=== PATIENT | male | born 1970 | race African-American/Black ===

== ENCOUNTER 2019-08-08 05:05 | Emergency (ER) | payer BC ==
--- NOTE | 2019-08-08 06:13 | EDM.PDOC ---
ED HPI GENERAL MEDICAL PROBLEM - General Chief Complaint: Respiratory Problem Stated Complaint: LEFT SIDE PAIN LEFT CHEST PAIN HOT AND COLD Time Seen by Provider: 08/08/19 05:48 Source of Information: Reports: Patient History Limitations: Reports: No Limitations - History of Present Illness INITIAL COMMENTS - FREE TEXT/NARRATIVE: Mr. Gallegos is a very pleasant 49-year-old male with no chronic medical issues who states that he has had left-sided pain - he indicates the far left side of his abdomen - coming and going since June. He states that the pain feels like a muscle spasm, with intense pain for 1 to 2 minutes, then briefly resolving, only to come back a short while later. It occasionally radiates up into his chest. It tends to be made worse with deep breaths, belching, or walking. No recent fever, although he has had chills. No recent nausea, vomiting, constipation, diarrhea, or urinary symptoms, although he states that his urine has appeared to be darker since 07/23/2019. The patient states that he first saw his PCP about this in June. He states that blood work and a chest x-ray were performed, and were negative. He was prescribed an opioid pain reliever, an antibiotic, and a steroid. He then saw his PCP a second time on 07/23/2019, where blood work and a chest x-ray were again performed, and were again negative. A CT scan (of what, he is not sure) was ordered for this coming 08/10/2019. The patient states that his pain increased last week, therefore he called his PCP this past . Since he had not heard back, he came to the ED today. The patient acknowledges that his pain is largely unchanged since June. The patient's PCP is Dr. Aaron Doyle. He did not receive an influenza vaccine this season, and declined an offer to receive one here today. Left Mid-Anterior Chest Pain Score (Numeric/FACES): 6 - Related Data Allergies Allergy/AdvReac Type Severity Reaction Status Date / Time No Known Allergies Allergy Verified 08/08/19 05:19 Home Meds: Home Meds . 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 ED EXAM, GI/ABD - Physical Exam Exam: See Below Exam Limited By: No Limitations General Appearance: Alert, WD/WN, No Apparent Distress Eyes: Bilateral: Normal Appearance, EOMI Ears: Normal External Exam, Hearing Grossly Normal Nose: Normal Inspection Throat/Mouth: Normal Inspection, Normal Lips, Normal Voice, No Airway Compromise Head: Atraumatic, Normocephalic Neck: Normal Inspection, Full Range of Motion Respiratory/Chest: No Respiratory Distress, Lungs Clear, Normal Breath Sounds, No Accessory Muscle Use Cardiovascular: Normal Peripheral Pulses, Regular Rate, Rhythm, No Edema, No Gallop, No JVD, No Murmur, No Rub GI/Abdominal Exam: Normal Bowel Sounds, Soft, Non-Tender, No Organomegaly, No Distention, No Abnormal Bruit, No Mass, Other (The patient reports pain to the far left side of his abdomen, however, there is no tenderness to palpation) (Male) Exam: Deferred Rectal (Males) Exam: Deferred Back Exam: Normal Inspection, Full Range of Motion. No: CVA Tenderness (L), CVA Tenderness (R) Extremities: Normal Inspection, Normal Range of Motion, No Pedal Edema, Normal Capillary Refill Neurological: Alert, Oriented, Normal Cognition, No Motor/Sensory Deficits Psychiatric: Normal Affect Skin Exam: Warm, Dry, Intact, Normal Color, No Rash Course - Vital Signs Last Recorded V/S: Last Vital Signs Temp 36.4 C 08/08/19 05:16 Pulse 106 H 08/08/19 05:16 Resp 16 08/08/19 05:16 BP 117/78 08/08/19 05:16 Pulse Ox 92 L 08/08/19 05:16 - Orders/Labs/Meds Orders: Active Orders 24 hr Category Date Time Status Chest 2V [CR] Stat Exams 08/08/19 05:21 Taken INR,PT,PROTHROMBIN TIME [COAG] Stat Lab 08/08/19 08:41 Ordered PTT,PARTIAL THROMBOPLSTIN TIME [COAG] Stat Lab 08/08/19 08:37 Ordered Heparin Sodium Med 08/08/19 08:37 Once 5,000 units IVPUSH .BOLUS ONE Heparin Sodium/D5W [Heparin 25,000 Units in D5W 500 ML] Med 08/08/19 08:45 Ordered 25,000 units in 500 ml IV TITRATE Sodium Chloride 0.9% [Normal Saline] 1,000 ml Med 08/08/19 06:15 Active IV ASDIRECTED Sodium Chloride 0.9% [Normal Saline] 100 ml Med 08/08/19 07:05 Active IV ASDIRECTED Sodium Chloride 0.9% [Saline Flush] Med 08/08/19 07:05 Active 10 ml FLUSH ONETIME PRN Medication Orders Sodium Chloride (Normal Saline) 1,000 mls @ 150 mls/hr IV ASDIRECTED YOVANI Last Admin: 08/08/19 06:12 Dose: 150 mls/hr Sodium Chloride (Normal Saline) 100 mls @ 80 mls/hr IV ASDIRECTED YOVANI Last Admin: 08/08/19 07:10 Dose: 80 mls/hr Heparin Sodium/Dextrose (Heparin 25,000 Units In D5w 500 Ml) 25,000 units in 500 mls @ 26 mls/hr IV TITRATE YOVANI; Protocol Sodium Chloride (Saline Flush) 10 ml FLUSH ONETIME PRN PRN Reason: KEEP VEIN OPEN Last Admin: 08/08/19 07:10 Dose: 10 ml Labs: Laboratory Tests 08/08/19 08/08/19 08/08/19 Range/Units 05:38 05:38 05:38 WBC 5.38 (4.23-9.07) K/mm3 RBC 4.57 L (4.63-6.08) M/mm3 Hgb 14.4 (13.7-17.5) gm/dl Hct 41.4 (40.1-51.0) % MCV 90.6 (79.0-92.2) fl MCH 31.5 (25.7-32.2) pg MCHC 34.8 (32.2-35.5) g/dl RDW Std Deviation 41.9 (35.1-43.9) fL Plt Count 158 L (163-337) K/mm3 MPV 10.3 (9.4-12.3) fl Neut % (Auto) 52.4 (34.0-67.9) % Lymph % (Auto) 26.6 (21.8-53.1) % [place] % (Auto) 15.8 H (5.3-12.2) % Eos % (Auto) 4.6 (0.8-7.0) Baso % (Auto) 0.6 (0.1-1.2) % Neut # (Auto) 2.82 (1.78-5.38) K/mm3 Lymph # (Auto) 1.43 (1.32-3.57) K/mm3 [place] # (Auto) 0.85 H (0.30-0.82) K/mm3 Eos # (Auto) 0.25 (0.04-0.54) K/mm3 Baso # (Auto) 0.03 (0.01-0.08) K/mm3 Manual Slide Review Abnormal smear D-Dimer, Quantitative 2.11 H (0.19-0.50) mg/L Sodium 137 (136-145) mEq/L Potassium 4.1 (3.5-5.1) mEq/L Chloride 101 (98-107) mEq/L Carbon Dioxide 25 (21-32) mEq/L Anion Gap 15.1 H (5-15) BUN 11 (7-18) mg/dL Creatinine 1.3 (0.7-1.3) mg/dL Est Cr Clr Drug Dosing 70.25 mL/min Estimated GFR (MDRD) 59 (>60) mL/min BUN/Creatinine Ratio 8.5 L (14-18) Glucose 98 (74-106) mg/dL Calcium 8.9 (8.5-10.1) mg/dL Total Bilirubin 0.4 (0.2-1.0) mg/dL AST 17 (15-37) U/L ALT 24 (16-63) U/L Alkaline Phosphatase 84 (46-116) U/L NT-Pro-B Natriuret Pep (0-125) pg/mL Total Protein 7.4 (6.4-8.2) g/dl Albumin 3.6 (3.4-5.0) g/dl Globulin 3.8 gm/dL Albumin/Globulin Ratio 1.0 (1-2) Urine Color (Yellow) Urine Appearance (Clear) Urine pH (5.0-8.0) Ur Specific [place] (1.005-1.030) Urine Protein (Negative) Urine Glucose (UA) (Negative) Urine Ketones (Negative) Urine Occult Blood (Negative) Urine Nitrite (Negative) Urine Bilirubin (Negative) Urine Urobilinogen (0.2-1.0) Ur Leukocyte Esterase (Negative) Urine RBC (0-5) /hpf Urine WBC (0-5) /hpf Ur Epithelial Cells (0-5) /hpf Urine Bacteria (FEW) /hpf Urine Mucus (FEW) /hpf 08/08/19 08/08/19 Range/Units 05:38 07:30 WBC (4.23-9.07) K/mm3 RBC (4.63-6.08) M/mm3 Hgb (13.7-17.5) gm/dl Hct (40.1-51.0) % MCV (79.0-92.2) fl MCH (25.7-32.2) pg MCHC (32.2-35.5) g/dl RDW Std Deviation (35.1-43.9) fL Plt Count (163-337) K/mm3 MPV (9.4-12.3) fl Neut % (Auto) (34.0-67.9) % Lymph % (Auto) (21.8-53.1) % [place] % (Auto) (5.3-12.2) % Eos % (Auto) (0.8-7.0) Baso % (Auto) (0.1-1.2) % Neut # (Auto) (1.78-5.38) K/mm3 Lymph # (Auto) (1.32-3.57) K/mm3 [place] # (Auto) (0.30-0.82) K/mm3 Eos # (Auto) (0.04-0.54) K/mm3 Baso # (Auto) (0.01-0.08) K/mm3 Manual Slide Review D-Dimer, Quantitative (0.19-0.50) mg/L Sodium (136-145) mEq/L Potassium (3.5-5.1) mEq/L Chloride (98-107) mEq/L Carbon Dioxide (21-32) mEq/L Anion Gap (5-15) BUN (7-18) mg/dL Creatinine (0.7-1.3) mg/dL Est Cr Clr Drug Dosing mL/min Estimated GFR (MDRD) (>60) mL/min BUN/Creatinine Ratio (14-18) Glucose (74-106) mg/dL Calcium (8.5-10.1) mg/dL Total Bilirubin (0.2-1.0) mg/dL AST (15-37) U/L ALT (16-63) U/L Alkaline Phosphatase (46-116) U/L NT-Pro-B Natriuret Pep 145 H (0-125) pg/mL Total Protein (6.4-8.2) g/dl Albumin (3.4-5.0) g/dl Globulin gm/dL Albumin/Globulin Ratio (1-2) Urine Color Yellow (Yellow) Urine Appearance Clear (Clear) Urine pH 6.5 (5.0-8.0) Ur Specific [place] > or = 1.030 (1.005-1.030) Urine Protein Trace H (Negative) Urine Glucose (UA) Negative (Negative) Urine Ketones Negative (Negative) Urine Occult Blood Negative (Negative) Urine Nitrite Negative (Negative) Urine Bilirubin Negative (Negative) Urine Urobilinogen 0.2 (0.2-1.0) Ur Leukocyte Esterase Negative (Negative) Urine RBC 0-5 (0-5) /hpf Urine WBC 0-5 (0-5) /hpf Ur Epithelial Cells 0-5 (0-5) /hpf Urine Bacteria Few (FEW) /hpf Urine Mucus Moderate H (FEW) /hpf Meds: Medications Generic Name Dose Route Start Last Admin Trade Name Frechaz PRN Reason Stop Dose Admin Sodium Chloride 1,000 mls @ 150 mls/hr 08/08/19 06:15 08/08/19 06:12 Normal Saline IV 150 mls/hr ASDIRECTED YOVANI Administration Sodium Chloride 100 mls @ 80 mls/hr 08/08/19 07:05 08/08/19 07:10 Normal Saline IV 80 mls/hr ASDIRECTED YOVANI Administration Heparin Sodium/Dextrose 25,000 units in 500 mls @ 26 mls/hr 08/08/19 08:45 Heparin 25,000 Units In D5w 500 Ml IV TITRATE YOVANI Protocol 1,300 UNITS/HR Sodium Chloride 10 ml 08/08/19 07:05 08/08/19 07:10 Saline Flush FLUSH 10 ml ONETIME PRN Administration KEEP VEIN OPEN Discontinued Medications Generic Name Dose Route Start Last Admin Trade Name Freq PRN Reason Stop Dose Admin Diatrizoate Meglum/Diatrizoate Sod 60 ml 08/08/19 07:05 08/08/19 07:10 Gastrografin 37% PO 08/08/19 07:06 60 ml ONETIME ONE Administration Heparin Sodium (Porcine) 5,000 units 08/08/19 08:37 Heparin Sodium IVPUSH 08/08/19 08:38 .BOLUS ONE Iopamidol 100 ml 08/08/19 07:05 Isovue-300 (61%) IVPUSH 08/08/19 07:06 ONETIME ONE Iopamidol 100 ml 08/08/19 07:05 08/08/19 07:10 Isovue-370 (76%) IVPUSH 08/08/19 07:06 100 ml ONETIME ONE Administration - Re-Assessments/Exams Free Text/Narrative Re-Assessment/Exam: 08/08/19 06:07 The cause of the patient's left-sided pain is not immediately clear. It has been present since June, essentially unchanged, and on examination, while I can palpate the area where he has pain, there is no tenderness to palpation. He also reports that his urine has been dark since around 07/23/2019, and despite 2 prior work-ups by his PCP, there has been no evaluation of his urine. A CBC, CMP, D-dimer, and chest x-ray have been ordered; I do not have the blood test results yet. The chest x-ray interpretation is to follow. I have added a urinalysis and CT scan of his abdomen and pelvis with oral and IV contrast to see if we can determine the cause of his pain. In the meantime, the patient will be given IV fluid. Unfortunately, he drove himself here, therefore we cannot offer him an opioid. Two-view chest radiograph reviewed. There is cardiomegaly, but no pulmonary vascular congestion or pleural effusions to suggest decompensated CHF. No focal infiltrate. No pneumothorax. Formal read per the Radiologist pending. Based on the above, I will add a BNP, to establish a baseline. 08/08/19 06:23 The patient's CBC is unremarkable. His CMP is remarkable for an anion gap slightly elevated at 15.1, but with a bicarbonate normal at 25. The remainder of his CMP is unremarkable. His D-dimer is significantly elevated at 2.11. Based on the above, I have added a CT angiogram of his chest to evaluate for a PE. 08/08/19 08:14 CT angiogram of the chest is read by Dr. Viveros as: 1. Prominent pulmonary emboli within the left distal main pulmonary artery extending into the segmental and subsegmental branch of the left lower lung. 2. Lesser pulmonary emboli within the right segmental lower lobe branches. 3. Mild cardiomegaly with enlarged right ventricle suggesting right heart strain. The patient's urinalysis is unremarkable. 08/08/19 08:19 CT of the abdomen and pelvis with oral and IV contrast as read by Dr. Viveros as: 1. Enlarged heart with small pericardial effusion with enlarged right ventricle. 2. Minimal left-sided pleural effusion with left lower lobe atelectasis or developing pulmonary infarct. 3. No additional abnormality is seen on CT study of the abdomen and pelvis. 08/08/19 08:43 Because of the patient's right heart strain, I queried whether or not the patient might benefit from thrombolysis or thrombectomy. Case discussed with Eduardo at [facility] at 08:20. Images pushed to [facility] at 08:23. Case discussed with Dr. Morse, Interventional Radiologist at [facility], at 08:26. He opined that we could give the patient IV tPA here, then transfer him. If the patient still required intervention once he got there, that could be done. He wanted the opinion of the Rinkman, however. Case then discussed with Dr. Rolon, Rinkman at [facility], at 08: 33. He preferred that we only give the patient heparin, then decide when the patient gets to [place] whether to give IV tPA versus catheter-directed tPA versus thrombectomy. He accepted the patient for transfer to their ICU. The patient will be transported by ground ambulance. I have added coags to blood already in the lab. 08/08/19 08:52 The above plan was discussed with the patient. He is agreeable. Departure - Departure Time of Disposition: 08:48 Disposition: DC/Tfer to Acute Hospital 02 Condition: Good Clinical Impression: Pulmonary embolus - Discharge Information *PRESCRIPTION DRUG MONITORING PROGRAM REVIEWED*: Not Applicable *COPY OF PRESCRIPTION DRUG MONITORING REPORT IN PATIENT ROSEANNE: Not Applicable Referrals: Aaron Doyle Jr, MD [Primary Care Provider] - Forms: ED Department Discharge Sepsis Event Note - Evaluation Sepsis Screening Result: No Definite Risk - Focused Exam Vital Signs: Vital Signs Temp Pulse Resp BP Pulse Ox 08/08/19 05:16 36.4 C 106 H 16 117/78 92 L Date Exam was Performed: 08/08/19 Time Exam was Performed: 08:43 - My Orders Last 24 Hours: My Active Orders 08/08/19 05:21 Chest 2V [CR] Stat 08/08/19 06:15 Sodium Chloride 0.9% [Normal Saline] 1,000 ml IV ASDIRECTED 08/08/19 07:05 Sodium Chloride 0.9% [Normal Saline] 100 ml IV ASDIRECTED Sodium Chloride 0.9% [Saline Flush] 10 ml FLUSH ONETIME PRN 08/08/19 08:37 PTT,PARTIAL THROMBOPLSTIN TIME [COAG] Stat Heparin Sodium 5,000 units IVPUSH .BOLUS ONE 08/08/19 08:41 INR,PT,PROTHROMBIN TIME [COAG] Stat 08/08/19 08:45 Heparin Sodium/D5W [Heparin 25,000 Units in D5W 500 ML] 25,000 units in 500 ml IV TITRATE - Assessment/Plan Last 24 Hours: My Active Orders 08/08/19 05:21 Chest 2V [CR] Stat 08/08/19 06:15 Sodium Chloride 0.9% [Normal Saline] 1,000 ml IV ASDIRECTED 08/08/19 07:05 Sodium Chloride 0.9% [Normal Saline] 100 ml IV ASDIRECTED Sodium Chloride 0.9% [Saline Flush] 10 ml FLUSH ONETIME PRN 08/08/19 08:37 PTT,PARTIAL THROMBOPLSTIN TIME [COAG] Stat Heparin Sodium 5,000 units IVPUSH .BOLUS ONE 08/08/19 08:41 INR,PT,PROTHROMBIN TIME [COAG] Stat 08/08/19 08:45 Heparin Sodium/D5W [Heparin 25,000 Units in D5W 500 ML] 25,000 units in 500 ml IV TITRATE
[2019-08-08] MEDS ORDERED: Sodium Chloride 0.9% 1,000 ML IV SCH ×2 (06:15→09:00)
[2019-08-08] MEDS ORDERED: Sodium Chloride 0.9% 100 ML IV SCH (07:05)
[2019-08-08] MEDS ORDERED: Sodium Chloride 0.9% 10 ML Syringe FLUSH PRN (07:05)
[2019-08-08] MEDS ORDERED: Iopamidol 612 MG/ML 100 ML Bottle IVPUSH ONE (07:05)
[2019-08-08] MEDS ORDERED: Diatrizoate Meglumine/Diatrizoate Sodium 37% 120 ML Bottle PO ONE (07:05)
[2019-08-08] MEDS ORDERED: Iopamidol 755 Mg/ML 100 ML Bottle IVPUSH ONE (07:05)
--- NOTE | 2019-08-08 08:11 | CT ---
CT chest Technique: Multiple axial sections through the chest were obtained. Intravenous contrast was utilized. Comparison: No prior chest CT, previous chest x-ray of 08/08/19. Findings: Thrombus is noted within the distal left main pulmonary artery which extends into the segmental and subsegmental branches of the left lower lobe. Lesser pulmonary emboli are seen within the segmental branches of the right lower lung. Left upper lobe pulmonary arteries show no pulmonary embolism. Heart is somewhat enlarged. Increased size of the right ventricle is seen suggesting some right heart strain. Visualized upper abdominal structures shows nothing acute. Slight parenchymal density is noted within the left lung base either due to atelectasis or developing pulmonary infarct. Lungs otherwise are clear. Bone window settings were reviewed which appear within normal limits for the patient's age. Impression: 1. Prominent pulmonary emboli within the left distal main pulmonary artery extending into the segmental and subsegmental branch of the left lower lung. 2. Lesser pulmonary emboli within the right segmental lower lobe branches. 3. Mild cardiomegaly with enlarged right ventricle suggesting right heart strain. Diagnostic code #5 This report was dictated in [place] Standard Time
--- NOTE | 2019-08-08 08:17 | CT ---
CT abdomen and pelvis Technique: Multiple axial sections were obtained from above the dome of the diaphragm inferiorly through the pubic symphysis. Intravenous and oral contrast was utilized. Comparison: Very minimal left-sided pleural effusion. Increased density within left lung base which as noted on chest CT is either due to atelectasis or developing pulmonary infarct. Liver contains no focal abnormality. Spleen appears within normal limits. Heart is enlarged with enlarged right ventricle. Small pericardial effusion is seen. Adrenal glands show no nodule. Pancreas is within normal limits. Kidneys show symmetric contrast enhancement without hydronephrosis or mass. Gallbladder contains no calcified gallstones. Aorta shows no aneurysm. No retroperitoneal adenopathy or mesenteric abnormalities are seen. No pelvic mass or adenopathy is seen. No free fluid is seen. No inflammatory change is seen within the abdomen or pelvis. Appendix not visualized with certainty. Bone window settings were reviewed which appear within normal limits for the patient's age. Impression: 1. Enlarged heart with small pericardial effusion with enlarged right ventricle. 2. Minimal left-sided pleural effusion with left lower lobe atelectasis or developing pulmonary infarct. 3. No additional abnormality is seen on CT study of the abdomen and pelvis. Diagnostic code #3 This report was dictated in [place] Standard Time
[2019-08-08] MEDS ORDERED: Heparin Sodium 5,000 Units/ML Vial IVPUSH ONE (08:37)
[2019-08-08] MEDS ORDERED: Heparin Sodium/D5W 25,000 UNITS/500 ML BAG IV SCH (08:45)
--- NOTE | 2019-08-08 18:25 | CR ---
Chest: 2 views of the chest were obtained. Comparison: No prior chest imaging is available. Heart felt to be slightly enlarged. Upper mediastinum is within normal limits. Slight parenchymal density along the left lateral chest is seen. Lungs otherwise are clear. Impression: 1. Slight parenchymal density along the left chest. Uncertain if this is due to adjacent pleural thickening or represents other parenchymal process. 2. Nothing acute is otherwise seen on 2 view chest x-ray. Diagnostic code #3 This report was dictated in [place] Standard Time
== END 2019-08-08 09:25 ==
LOC: JD.ED 05:05
DX: I26.99 Other pulmonary embolism without acute cor pulmonale (principal)
CPT/HCPCS: 36415; 71046; 71275; 74177; 80053; 81001; 83880; 85025; 85379; 85610; 85730; 96361; 96365; 99285; J1644; J7030; J7050; Q9963; Q9967